=== PATIENT | male | born 1950 | race Caucasian/White ===

== ENCOUNTER 2020-07-14 22:50 | Emergency (ER) | payer MEDICARE, OTHER ==
[~2020-07-14] VITALS: Ht 185.4 cm; Wt 120.4 kg
[2020-07-14 23:10] VITALS: BP 134/74
[2020-07-14] MEDS ORDERED: DIPH,PERTUSS(ACELL),TET VAC/PF 0.5 ML SYRINGE. VAX IM ONE (23:38)
--- NOTE | 2020-07-14 23:38 | PHYS DOC ---
Past History Past Medical History: No Pertinent History Past Surgical History: No Surgical History Alcohol Use: Occasionally General Adult EDM: Chief Complaint: LACERATION/AVULSION HPI: HPI: 69-year-old male presents with right lower leg laceration. The patient was climbing down off of a ladder and stepped into a tool container. A speed square stepped into his leg. He had immediate bleeding. He was able to control bleeding with direct pressure prior to arrival. He denies any other injuries or complaints. He is unsure if his tetanus is less than 5 years old. Review of Systems: Review of Systems: Constitutional: Denies fever or chills Eyes: Denies change in visual acuity HENT: Denies nasal congestion or sore throat Respiratory: Denies cough or shortness of breath Cardiovascular: Denies chest pain or edema GI: Denies abdominal pain, nausea, vomiting, bloody stools or diarrhea : Denies dysuria Musculoskeletal: Denies back pain or joint pain Integument: Laceration right lower leg Neurologic: Denies headache, focal weakness or sensory changes Endocrine: Denies polyuria or polydipsia Lymphatic: Denies swollen glands Psychiatric: Denies depression or anxiety Allergies: Allergies: Allergies Coded Allergies Type Severity Reaction Last Updated Verified No Known Drug Allergies 07/14/20 No Physical Exam: PE: Constitutional: Well developed, well nourished, no acute distress, non-toxic appearance. [] HENT: Normocephalic, atraumatic, bilateral external ears normal, oropharynx moist, no oral exudates, nose normal. [] Eyes: PERRLA, EOMI, conjunctiva normal, no discharge. [] Neck: Normal range of motion, no tenderness, supple, no stridor. [] Cardiovascular:Heart rate regular rhythm, no murmur [] Lungs & Thorax: Bilateral breath sounds clear to auscultation [] Abdomen: Bowel sounds normal, soft, no tenderness, no masses, no pulsatile masses. [] Skin: 8 cm shallow V laceration of the right lower leg involving skin and subcutaneous fat. No obvious muscle involvement. Neurovascularly intact. [] Back: No tenderness, no CVA tenderness. [] Extremities: No tenderness, no cyanosis, no clubbing, ROM intact, no edema. [] Neurologic: Alert and oriented X 3, normal motor function, normal sensory function, no focal deficits noted. [] Psychologic: Affect normal, judgement normal, mood normal. [] Current Patient Data: Vital Signs: Vital Signs Date Time Temp Pulse Resp B/P (MAP) Pulse Ox O2 Delivery O2 Flow Rate FiO2 07/14/20 23:10 98.5 80 18 134/74 (94) 98 Room Air EKG: EKG: [] Radiology/Procedures: Radiology/Procedures: [] Heart Score: Risk Factors: Risk Factors: DM, Current or recent (<one month) smoker, HTN, HLP, family history of CAD, obesity. Risk Scores: Score 0 - 3: 2.5% MACE over next 6 weeks - Discharge Home Score 4 - 6: 20.3% MACE over next 6 weeks - Admit for Clinical Observation Score 7 - 10: 72.7% MACE over next 6 weeks - Early Invasive Strategies Course & Med Decision Making: Course & Med Decision Making Pertinent Labs and Imaging studies reviewed. (See chart for details) I repaired the patient's laceration with sutures. See note below for more details. Patient had a decent amount of bleeding and we were able to clean it out very well so I do not believe antibiotics are necessary. He will have the stitches out in 7 to 10 days. He is stable for discharge at this time. [] Dragon Disclaimer: Dragon Disclaimer: This electronic medical record was generated, in whole or in part, using a voice recognition dictation system. Laceration Repair Lac Repair Indication: [] 8 cm V-shaped laceration of the right lower leg Procedure: The patient gave me verbal permission for suture repair of his laceration. The wound was thoroughly irrigated with normal saline under pressure. I anesthetized the wound with 1% lidocaine with epinephrine. A total of 5 cc was used. After good anesthesia was achieved, I placed 9 sutures in interrupted fashion. 3-0 Ethilon suture was used. A clean dressing was applied with a compression wrap. His tetanus was updated in the emergency room. Total repaired wound length: 8 cm Other Items: None The patient tolerated the procedure well. Complications: V shape. Departure Departure: Impression: Primary Impression: Laceration of right lower leg without complication Qualified Codes: S81.811A - Laceration without foreign body, right lower leg, initial encounter Disposition: 01 DC HOME SELF CARE/HOMELESS Condition: IMPROVED Referrals: PCP,NO (PCP) Patient Instructions: Laceration Care, Adult, [id number], Sutured Wound Care, [id number] WERNER DIANA DO Jul 14, 2020 23:38
[2020-07-15] MEDS ORDERED: DIPH,PERTUSS(ACELL),TET VAC/PF 0.5 ML SYRINGE. VAX IM ONE
== END 2020-07-15 00:47 | disposition home or self-care (01) ==
LOC: ER 22:50
DX: S81.811A Laceration without foreign body, right lower leg, initial encounter (principal); W22.8XXA Striking against or struck by other objects, initial encounter; Y93.89 Activity, other specified; Y92.89 Other specified places as the place of occurrence of the external cause; Y99.8 Other external cause status
CPT/HCPCS: 12004; 90471; 90715; 99283

== ENCOUNTER 2020-07-24 09:02 | Emergency (ER) | payer MEDICARE, OTHER ==
[~2020-07-24] VITALS: Ht 185.4 cm; Wt 120.4 kg
[2020-07-24 09:13] VITALS: BP 168/78
--- NOTE | 2020-07-24 09:21 | PHYS DOC ---
Past History Past Medical History: No Pertinent History Past Surgical History: No Surgical History Alcohol Use: Occasionally General Adult EDM: Chief Complaint: SUTURE/STAPLE REMOVAL HPI: HPI: 69-year-old male presents for suture removal. I personally placed the sutures in the patient. He has waited the 10 days but I recommended. His only complication is he has a palpable nodule lateral to the wound that is sensitive and a bit painful. He has been able to do his normal activities without difficulty. He denies fever or chills. Review of Systems: Review of Systems: Constitutional: Denies fever or chills Eyes: Denies change in visual acuity HENT: Denies nasal congestion or sore throat Respiratory: Denies cough or shortness of breath Cardiovascular: Denies chest pain or edema GI: Denies abdominal pain, nausea, vomiting, bloody stools or diarrhea : Denies dysuria Musculoskeletal: Denies back pain or joint pain Integument: Sutures in the right lower leg Neurologic: Denies headache, focal weakness or sensory changes Endocrine: Denies polyuria or polydipsia Lymphatic: Denies swollen glands Psychiatric: Denies depression or anxiety Allergies: Allergies: Allergies Coded Allergies Type Severity Reaction Last Updated Verified No Known Drug Allergies 07/14/20 No Physical Exam: PE: Constitutional: Well developed, well nourished, no acute distress, non-toxic appearance. [] HENT: Normocephalic, atraumatic, bilateral external ears normal, oropharynx moist, no oral exudates, nose normal. [] Eyes: PERRLA, EOMI, conjunctiva normal, no discharge. [] Neck: Normal range of motion, no tenderness, supple, no stridor. [] Cardiovascular:Heart rate regular rhythm, no murmur [] Lungs & Thorax: Bilateral breath sounds clear to auscultation [] Abdomen: Bowel sounds normal, soft, no tenderness, no masses, no pulsatile masses. [] Skin: Sutures of the right lower leg appear to be healing well, some mild surro unding erythema, palpable superficial hematoma or thrombus. No warmth to the touch. Does not appear infected. [] Back: No tenderness, no CVA tenderness. [] Extremities: No tenderness, no cyanosis, no clubbing, ROM intact, no edema. [] Neurologic: Alert and oriented X 3, normal motor function, normal sensory functi on, no focal deficits noted. [] Psychologic: Affect normal, judgement normal, mood normal. [] Current Patient Data: Vital Signs: Vital Signs Date Time Temp Pulse Resp B/P (MAP) Pulse Ox O2 Delivery O2 Flow Rate FiO2 07/24/20 09:13 98.1 83 18 168/78 (108) 100 EKG: EKG: [] Radiology/Procedures: Radiology/Procedures: [] Heart Score: Risk Factors: Risk Factors: DM, Current or recent (<one month) smoker, HTN, HLP, family history of CAD, obesity. Risk Scores: Score 0 - 3: 2.5% MACE over next 6 weeks - Discharge Home Score 4 - 6: 20.3% MACE over next 6 weeks - Admit for Clinical Observation Score 7 - 10: 72.7% MACE over next 6 weeks - Early Invasive Strategies Course & Med Decision Making: Course & Med Decision Making Pertinent Labs and Imaging studies reviewed. (See chart for details) I believe the erythema around the wound is due to the body being irritated with the suture. Does not appear infected. He has a palpable nodule that is likely a superficial clot or small hematoma. This should resolve on its own. The sutures are ready for removal. As the nurse and I were removing the sutures, he had a little bit of seepage from the wound. I was concerned that the tip of the V might still open up. We removed 5 sutures but I have advised the patient to wait 4 more days to take the rest of them out. He states verbal understanding is in agreement with this. He is stable for discharge at this time. [] Dragon Disclaimer: Carmen Disclaimer: This electronic medical record was generated, in whole or in part, using a voice recognition dictation system. Departure Departure: Impression: Primary Impression: Encounter for removal of sutures Disposition: 01 DC HOME SELF CARE/HOMELESS Condition: STABLE Referrals: STEPHANIE GATES (PCP) Patient Instructions: Suture Removal-WERNER Davalos DO Jul 24, 2020 09:21
== END 2020-07-24 09:33 | disposition home or self-care (01) ==
LOC: ER 09:02
DX: S81.811D Laceration without foreign body, right lower leg, subsequent encounter (principal); X58.XXXD Exposure to other specified factors, subsequent encounter
CPT/HCPCS: 99281

== ENCOUNTER 2020-07-30 10:15 | Emergency (ER) | payer MEDICARE, OTHER ==
[~2020-07-30] VITALS: Ht 185.4 cm; Wt 120.4 kg
--- NOTE | 2020-07-30 10:53 | PHYS DOC ---
Past History Past Medical History: No Pertinent History Past Surgical History: No Surgical History Alcohol Use: Occasionally Adult General Chief Complaint Chief Complaint: SUTURE/STAPLE REMOVAL [facility] Patient is a 69-year-old male who presents for suture removal. He was seen here 3 days ago to have sutures removed and has x4 remaining that are hoped to be removed today if continued wound resolution is found. He is asymptomatic. He reports good wound healing without any remarkable abnormalities and/or reportable events and/or symptoms Review of Systems Review of Systems Fourteen body systems of review of systems have been reviewed. See HPI for pertinent positives and negative responses, other pérez all other systems are negative, non-pertinent or non-contributory Allergies Allergies Allergies Coded Allergies Type Severity Reaction Last Updated Verified No Known Drug Allergies 07/14/20 No Physical Exam Physical Exam Constitutional: Well developed, well nourished, no acute distress, non-toxic appearance. HENT: Normocephalic, atraumatic, bilateral external ears normal, oropharynx moist, no oral exudates, nose normal. Eyes: PERRLA, EOMI, conjunctiva normal, no discharge. Neck: Normal range of motion, no tenderness, supple, no stridor. Cardiovascular: Heart rate regular, sinus rhythm, no murmurs rubs or gallops Lungs & Thorax: Bilateral breath sounds clear to auscultation Abdomen: Bowel sounds normal, soft, no tenderness, no masses, no pulsatile masses. Nonsurgical abdomen, no peritoneal signs Skin: Warm, dry, no erythema, no rash. Well-appearing L-shaped laceration noted to lateral portion of right vance with x4 simple sutures present that are well- appearing without any concerning erythema, palpable exudate, streaking, cr epitus, or subcutaneous masses or fluctuance Back: No tenderness, no CVA tenderness. Extremities: No tenderness, no cyanosis, no clubbing, ROM intact, no edema. Neurologic: Alert and oriented X 3, grossly normal motor & sensory function, no focal deficits noted. Psychologic: Affect normal, judgement normal, mood normal. EKG EKG [] Radiology/Procedures Radiology/Procedures [] Heart Score Risk Factors: Risk Factors: DM, Current or recent (<one month) smoker, HTN, HLP, family history of CAD, obesity. Risk Scores: Risk Factors: DM, Current or recent (<one month) smoker, HTN, HLP, family history of CAD, obesity. Course & Med Decision Making Course & Med Decision Making Well-appearing wound. Times 4 sutures removed without any complication. No obvious signs or symptoms of infection. Continued supportive care and outpatient follow-up advised Strict return precautions were discussed with good understanding by patient, all questions and concerns addressed prior to ER departure in stable condition Dragon Disclaimer Dragon Disclaimer This electronic medical record was generated, in whole or in part, using a voice recognition dictation system. Departure Departure: Impression: Primary Impression: Encounter for removal of sutures Disposition: 01 DC HOME SELF CARE/HOMELESS Condition: STABLE Referrals: STEPHANIE GATES (PCP) Patient Instructions: Laceration Care, Adult JERRICAGARLAND DO Jul 30, 2020 10:53
[2020-07-30] MEDS ORDERED: BACITRACIN ZINC TOPICAL OINT PACKET. TP ONE (10:56)
== END 2020-07-30 11:01 | disposition home or self-care (01) ==
LOC: ER 10:15
DX: S81.812D Laceration without foreign body, left lower leg, subsequent encounter (principal); X58.XXXD Exposure to other specified factors, subsequent encounter
CPT/HCPCS: 99281